=== PATIENT | female | born 1965 | race Caucasian/White ===

== ENCOUNTER 2018-01-06 21:29 | Observation (INO) | payer MEDICAID, SELFPAY ==
[2018-01-06 21:30] VITALS: BP 139/79; PULSE 104; RESP 14; TEMP 36.8; O2SAT 100; BMI 34.2
[2018-01-06] MEDS: Ketorolac 60 MG/2 ML Vial IM (23:04)
[2018-01-06] MEDS: Metoclopramide 10 MG Tablet PO (23:04)
[2018-01-07] MEDS: 0.9% Normal Saline 1,000 ML 999 ML IV (00:05)
[2018-01-07] MEDS: Ondansetron 4 MG/2 ML Vial IV ×2 (00:05→06:18)
[2018-01-07] MEDS: Dihydroergotamine 1 MG/ML Ampul IV (00:05)
--- NOTE | 2018-01-07 00:55 | CT_ITS ---
STUDY: CT BRAIN WITHOUT CONTRAST REASON FOR EXAM: Female, 52 years old. Headache. History of migraine headaches. RADIATION DOSAGE (If Supplied By Facility): CTDIvol = ( 44.99 ) mGy, DLP = ( 745.49 ) mGycm TECHNIQUE: Transaxial CT imaging of the brain was performed without administration of intravenous contrast material. Individualized dose optimization techniques were used for this CT. COMPARISON: None. FINDINGS: Normal soft tissue structures. Minimal smooth exostosis outer cortex left frontal bone which is likely an incidental finding.. Normal size ventricles and extra-axial spaces for the patient's age. Normal white matter tracts of the cerebral hemispheres. Normal basal ganglia and thalami. Normal brainstem. Normal cerebellum. There is no intracranial hemorrhage. There are no findings of an acute ischemic infarction. Normal visualized paranasal sinuses. Mastoid air cells well aerated. CT/Brain/Head without Contrast IMPRESSION: No acute intracranial abnormality. Electronically Signed: Rk Loya MD at 1:46 EDT , Service support ,
[2018-01-07 01:43] LABS: Absolute Lymphocyte Count 2.16 X10^3/ul (0.83-4.51); Absolute Neutrophil Count 3.2 X10^3/uL (2.0-7.7); Basophil# 0.02 X10^3/uL; Basophil% 0.3 % (0-1); Eosinophil# 0.04 X10^3/uL; Eosinophils% 0.7 % (0-5); Hematocrit 39.1 % (37-47); Hemoglobin 12.6 g/dl (12.0-15.0); Lymphocyte # 2.16 X10^3/ul (4.0); Lymphocyte % 37.6 % (19-41); Mean Corp Hgb Conc 32.2 g/gl (32-36); Mean Corpuscular Hgb 28.1 pg (27.0-32.0); Mean Corpuscular Volume 87.3 fL (81-99); Mean Platelet Vol. 8.9 fl (6.2-12.0); Monocyte# 0.32 X10^3/uL; Monocyte% 5.6 % (0-10); Neutrophil # 3.21 X10^3/uL (2.7-7.7); Neutrophil % 55.8 % (47-70); POSITIVE COUNT NO; POSITIVE DIFFERENTIAL NO; POSITIVE MORPHOLOGY NO; Platelet Count 195 K/mm3 (150-450); RBC Distribution Width CV 14.3 % (11.6-14.6); RBC Distribution Width SD 45.1 fl (35.1-43.9); Red Blood Count 4.48 M/mm3 (4.2-5.4); White Blood Count 5.8 K/mm3 (4.4-11.0)
[2018-01-07 01:46] LABS: Prothrombin Time (Protime)PT. 13.2 SECONDS (11.7-14.9)
[2018-01-07 01:52] LABS: Anion Gap 7 (5-15); BUN 15 mg/dL (7-18); BUN/Creat Ratio 15.2 RATIO (10-20); Calcium,Total 8.5 mg/dL (8.5-10.1); Chloride 107 mmol/L (98-107); Creatinine, Serum 0.98 mg/dL (0.55-1.02); EST Glomerular Filtration Rate 63 mL/min (>60); Est Glom Filt Rate - Afr Amer 77 mL/min (>60); Estimated Creatinine Clearance 58.65 ml/min; Glucose 107 mg/dL (74-106); Potassium 3.7 mmol/L (3.5-5.1); Sodium Level 140 mmol/L (136-145)
--- NOTE | 2018-01-07 02:23 | ED.VISSUMM ---
- ER Visit Summary Date of Service: 01/07/18 Chief Complaint: Migraine History of Present Illness: The patient is a 52 F who presents with a headache. She does have a history of migraines. She has a history of prior similar headaches. She states that the current headache began this morning and gradually worsened throughout the day. It is similar in character and location to previous headaches but is more severe. She currently states her pain is 10 out of 10. Her pain begins retro-orbital he and then goes towards the back of the head. She reports nausea but no vomiting. No fevers. No history of head injury or trauma. No visual changes. Physical Examination: Afebrile vitals notable for heart rate 104 otherwise normal Moist mucous membranes Heart regular rhythm slightly tachycardic Lungs are clear Abdomen soft Alert and oriented with no focal or lateralizing neurological deficits, normal strength and sensation, no ataxia Neck is supple without meningismus Test Results: CT of the head shows no acute abnormality. CBC BMP and INR are all normal. Emergency Department Course and Treatment: Initially after 2 attempts we were unable to establish an IV so she was treated with oral Reglan and intramuscular Toradol. She reports no change in symptoms. We again attempted an IV and were successful. The patient was treated with IV fluids DHE and Zofran. She still reports no change in symptoms. At this time I did pursue further evaluation to rule out other pathology including laboratory studies and a CT of the head which were normal. I discussed that my clinical suspicion for subarachnoid hemorrhage is very low given her description of symptoms and also meningitis is very unlikely. We discussed risks and benefits of lumbar puncture. Patient refuses lumbar puncture. At this time she still has intractable migraine. I have ordered a valproic acid and will admit the patient. Treatment Plan: [] Disposition: Admit Impression: Intractable migraine This note was generated with [employer] dictation software. It may contain incorrect words, spelling, and punctuation that were not noted in review of the chart prior to signing ED Disposition - Plan for ED Patient: Chief Complaint: Headache Referrals: [facility] Doctor,Out of [Primary Care Provider] -
--- NOTE | 2018-01-07 02:27 | PCM.HP.STD ---
Problem List (1) Migraine Status: Acute Qualifiers: Migraine type: unspecified Status migrainosus presence: with status migrainosus Intractability: intractable Qualified Code(s): G43.911 - Migraine, unspecified, intractable, with status migrainosus (2) Seizure Status: Chronic Comment: Remotely, x 1, she notes secondary to medication (3) Hypothyroidism Status: Chronic Qualifiers: Hypothyroidism type: unspecified Qualified Code(s): E03.9 - Hypothyroidism, unspecified (4) Obesity (BMI 30.0-34.9) Status: Chronic (5) OAB (overactive bladder) Status: Chronic (6) Bipolar disorder Status: Chronic Qualifiers: Active/Remission status: remission status unspecified Qualified Code(s): F31.9 - Bipolar disorder, unspecified (7) Chronic constipation Status: Chronic (8) Iron deficiency anemia Status: Chronic Qualifiers: Iron deficiency anemia type: unspecified iron deficiency Qualified Code(s): D50.9 - Iron deficiency anemia, unspecified (9) RLS (restless legs syndrome) Status: Chronic (10) Chronic back pain Status: Chronic Qualifiers: Back pain location: back pain in unspecified location Back pain laterality: unspecified Qualified Code(s): M54.9 - Dorsalgia, unspecified; G89.29 - Other chronic pain (11) GERD (gastroesophageal reflux disease) Status: Chronic Qualifiers: Esophagitis presence: esophagitis presence not specified Qualified Code(s): K21.9 - Gastro-esophageal reflux disease without esophagitis History of Present Illness Date of Admission: 01/07/18 Chief Complaint: Headache The patient is a 52 y/o F w/ PMHx: Obesity, Hypothyroidism, Remote Hx Seizure ([place] secondary to medication, x 1 only and no recurrence), OAB, Fe Deficiency Anemia, Anxiety and Depression/Bipolar Disorder, Prior Hx GALEN but she notes repeat testing w/ no further CPAP needs, Chronic Back Pain, RLS, Chronic Constipation, Migraines who presents to the [facility] ED on 01/07/18 with history of onset severe migraine headache starting morning prior to ED presentation, gradually worsening throughout the day, similar to prior migraines in location (retro-orbital radiating toward to back of the head) and character (throbbing but does change to sharp stabbing with movements); however, more severe with upon ED presentation 10 out of 10 pain rating with photophobia and phonophobia in addition to nausea without associated emesis. She notes having taken imitrex and antiemetic at home without relief. She admits that she has been taking 3-4 imitrex per week with poorly controlled migraines. She notes having been attempting to get into see a Neurologist but notes difficulty findings a physician who takes her insurance. In the ED work-up included 98.3, heart rate 104, BP 139/79, unremarkable CBC, unremarkable coags, unremarkable BMP glucose 107, CT brain with no acute intracranial abnormality. In the ED patient administered normal saline, Zofran, Reglan, Toradol, DHE, valproic acid 500 mg IV ?1 without marked improvement. Past Medical History Past Medical History (Chronic Problems): Chronic Problems Seizure (Chronic) Remotely, x 1, she notes secondary to medication Hypothyroidism (Chronic) Obesity (BMI 30.0-34.9) (Chronic) OAB (overactive bladder) (Chronic) Bipolar disorder (Chronic) Chronic constipation (Chronic) Iron deficiency anemia (Chronic) RLS (restless legs syndrome) (Chronic) Chronic back pain (Chronic) GERD (gastroesophageal reflux disease) (Chronic) Allergies morphine Allergy (Verified 01/06/18 21:35) Itching acetaminophen [From Vicodin] Adverse Reaction (Verified 01/06/18 21:35) Other hydrocodone [From Vicodin] Adverse Reaction (Verified 01/06/18 21:35) Other sulfamethoxazole [From Bactrim] Adverse Reaction (Verified 01/06/18 21:35) Nausea/Vom/Diarrhea trimethoprim [From Bactrim] Adverse Reaction (Verified 01/06/18 21:35) Nausea/Vom/Diarrhea Surgical History: - - Lithotripsy, cholecystectomy, tonsillectomy, sinus surgery, wrist surgery Psychiatric History: No pertinent psych hx MANAGER DAIRY History: No pertinent MANAGER DAIRY history Lives: With Family - Her son who is 18 years old lives with her in [place]. She does have a boyfriend who lives in [place]. Smoking Status: Former smoker - Cigarette tobacco usage approximately 18 years prior. Tobacco Use: Non-smoker Drugs: None - *Family History Maternal History Items: - - Patient notes maternal family history of migraines, depression and anxiety, breast cancer. Paternal History Items: No pertinent history Sibling History Items: - - Patient notes a sister with depression and anxiety as well as migraines. Review of Systems Constitutional: Reports: Anorexia, Malaise, Weakness, Fatigue. Denies: Chills, Fever, Weight Change HEENT: Reports: Head Aches. Denies: Sinus Congestion, Sinus Drainage Cardiovascular: Denies: Chest Pain, Palpitations Respiratory: Denies: Cough, Shortness of breath at rest, Sputum production Gastrointestinal: Reports: Nausea. Denies: Abdominal Pain, Vomiting Genitourinary: Denies: Dysuria Musculoskeletal: Reports: Back Pain. Denies: Joint Pain, Joint Tenderness Skin: Denies: Rash, Wounds Neurological: Denies: Numbness, Tingling, Focal weakness Psychiatric: Reports: Anxiety, Depression. Denies: Homicidal Ideations, Suicidal Ideations Hematologic/ Lymphatic: Reports: Anemia. Denies: Easy Bruising, Easy Bleeding VTE Information - Inpt Only VTE Present on Admission: No VTE Mechan Device Prophylaxis: SCD's VTE Pharm Prophylaxis ordered?: No Patient Problems: Active and Suspected Problems Migraine (Acute) Subjective: Seated upright in the ED bed, fatigued appearance, notes sound sensitivity improved, still having light sensitivity. Objective: Physical Examination: General: awake, alert, oriented x 3 and cooperative, seated upright in the ED bed, notes lessened sound sensitivity, still light sensitivity. Skin: normal color, turgor, no icterus, cyanosis. HEENT: AT/NC, EOMI, PERRLA, dry MM, no carotid bruits or JVD noted. Lungs: CTA bilaterally, moderate effort, mild decrease BL bases, no rales, ronchi or wheezing. Heart: Regular rate and rhythm; no gallop, rub audible. Abdomen: soft, obese, NTTP, ND, normal BS, no HSM. Extremities: no cyanosis, clubbing, or edema. Neurological: patient awake, alert, oriented x 3; cognitive function intact; pupils equally reactive to light and accomodation; cranial nerves II-XII grossly normal, moving all 4 extremities, no focal deficits, strength severely globally decreased secondary to acute presentation. Psychiatric: affect appears fatigued, no acute evidence of depressive or anxiety feelings. - Physical Exam Vital Signs Temp Pulse Resp BP Pulse Ox 98.3 F 104 H 14 139/79 H 100 01/06/18 21:30 01/06/18 21:30 01/06/18 21:30 01/06/18 21:30 01/06/18 21:30 Oxygen Delivery Method Room Air Weight: 199 lb 1.239 oz Body Mass Index (BMI) 34.2 Laboratory Tests Past 24 Hrs 01/07/18 01/07/18 01/07/18 01:35 01:35 01:35 WBC 5.8 RBC 4.48 Hgb 12.6 Hct 39.1 MCV 87.3 MCH 28.1 MCHC 32.2 RDW 14.3 RDW Differential 45.1 H Plt Count 195 MPV 8.9 Immature Gran % (Auto) 0.000 Neut % (Auto) 55.8 Lymph % (Auto) 37.6 [place] % (Auto) 5.6 Eos % (Auto) 0.7 Baso % (Auto) 0.3 Absolute Neuts (auto) 3.2 Absolute Lymphs (auto) 2.16 Total Counted Not Reportable PT 13.2 INR 1.0 Sodium 140 Potassium 3.7 Chloride 107 Carbon Dioxide 26.0 Anion Gap 7 BUN 15 Creatinine 0.98 Estim Creat Clear Calc 58.65 Est GFR (MDRD) Af Amer 77 Est GFR (MDRD) Non-Af 63 BUN/Creatinine Ratio 15.2 Glucose 107 H Calcium 8.5 Assessment/Plan All Active Problems Migraine (Acute) The patient is a 52 y/o F w/ PMHx: Obesity, Hypothyroidism, Remote Hx Seizure, OAB, Fe Deficiency Anemia, Anxiety and Depression/Bipolar Disorder, Prior Hx GALEN but she notes repeat testing w/ no further CPAP needs, Chronic Back Pain, RLS, Chronic Constipation, Migraines who presents to the [facility] ED on 01/07/18 with history of onset severe migraine headache starting morning prior to ED presentation, gradually worsening throughout the day, similar to prior migraines in location (retro-orbital radiating toward to back of the head) and character; however, more severe with upon ED presentation 10 out of 10 pain rating with photophobia and phonophobia in addition to nausea without associated emesis. (1) Acute Persistent Intractable Migraine: Will admit to MS, hold narcotic therapy give this may exacerbate migraine, initiate IV VPA 500mg Q6 hours, IV Decadron 4mg Q6 hours, IV Toradol 30mg Q6 hours x 5 and increase her home PO Neurontin 200mg TID with meals. If patient KENNY does not improve will proceed with MRI of brain with MRA of head. Will consult Neurology. (2) Hypothyroidism: Continue home synthroid regimen. (3) Obesity: Weight loss and lifestyle changes encouraged. (4) Hx Seizure: Noted remote history of seizure, not on AED, never recurred, suspected secondary to medication per patient report. (5) Fe Deficiency Anemia: Noted history, prior history of menorrhagia, admission hemoglobin appropriate, continue Fe supplementation. (6) Anxiety and Depression/Bipolar Disorder: Continue home psychiatric regimen. (7) Chronic Constipation: Continue home bowel regimen. (8) DVT Prophylaxis: SCDs, lovenox. Code Visit Inpatient E&M: 10395 Init Hosp L3
[2018-01-07 03:34] VITALS: BP 117/68; PULSE 68; RESP 18; TEMP 36.4; O2SAT 100; BMI 34.0; BMI 34.2
[2018-01-07] MEDS: Dicyclomine 10 MG Capsule PO ×4 (06:17→21:16)
[2018-01-07] MEDS: Gabapentin 100 MG Capsule 200 MG PO ×3 (06:17→17:15)
[2018-01-07] MEDS: busPIRone 15 MG TABLET PO ×3 (06:17→21:16)
[2018-01-07] MEDS: Levothyroxine 100 MCG Tablet PO (06:18)
[2018-01-07] MEDS: Ketorolac 30 MG/ML Syringe IV ×4 (06:18→23:39)
--- NOTE | 2018-01-07 09:47 | PN_ITS ---
Progress Note Patient is a 52-year-old lady admitted with acute migrainous attack. Patient has been omitted to a regular nursing floor for symptomatic management Patient has been seen and examined. Her initial assessment including history and physical, diagnostic data integration developer orders reviewed will follow.
[2018-01-07 09:48] VITALS: BP 121/70; PULSE 86; RESP 18; TEMP 36.4; O2SAT 97
[2018-01-07] MEDS: Enoxaparin 40 MG/0.4 ML Syringe SC (09:50)
[2018-01-07] MEDS: Famotidine 20 MG Tablet PO ×2 (09:50→21:17)
[2018-01-07] MEDS: Docusate Sodium 100 MG Capsule PO ×2 (09:51→21:16)
[2018-01-07] MEDS: Senna Tablet 1 TABLET PO ×2 (09:51→21:18)
[2018-01-07] MEDS: Aspirin 81 MG TAB.CHEW PO (09:51)
--- NOTE | 2018-01-07 09:55 | PCM.CONS.GEN ---
Problem List (1) Status migrainosus Status: Acute Reason for Consult Date of Consultation: 01/07/18 Reason for Consultation: Headache History of Present Illness: The patient is a 52 year old CF with PMH Migraine, H/O seizure, RLS, H/O chronic back pain, RA, Bipolar d/o admitted with KENNY. Per patient she started having KENNY since 10 AM yesterday (01/06/18), was severe, generalized, 10/10 intensity, with photosensitivity, phonophobia, vomiting, visual floaters, was started on Depacon and Decadron with Toradol since admission and that has helped with her KENNY, at present is 8/10 in intensity per patient. She denies any focal motor weakness, speech disturbances, sensory loss or visual disturbances. Per patient she has been having migraine HAs in the past, but she did not have any KENNY for many years in between, but has been having migraine HAs for the past [address] head on admission reported nothing acute. [] Past Medical History Past Medical History (Chronic Problems): Chronic Problems Seizure (Chronic) Remotely, x 1, she notes secondary to medication Hypothyroidism (Chronic) Obesity (BMI 30.0-34.9) (Chronic) OAB (overactive bladder) (Chronic) Bipolar disorder (Chronic) Chronic constipation (Chronic) Iron deficiency anemia (Chronic) RLS (restless legs syndrome) (Chronic) Chronic back pain (Chronic) GERD (gastroesophageal reflux disease) (Chronic) Allergies morphine Allergy (Verified 01/06/18 21:35) Itching acetaminophen [From Vicodin] Adverse Reaction (Verified 01/06/18 21:35) Other hydrocodone [From Vicodin] Adverse Reaction (Verified 01/06/18 21:35) Other sulfamethoxazole [From Bactrim] Adverse Reaction (Verified 01/06/18 21:35) Nausea/Vom/Diarrhea trimethoprim [From Bactrim] Adverse Reaction (Verified 01/06/18 21:35) Nausea/Vom/Diarrhea Home Medications: Ambulatory Orders Medication Instructions Recorded Amitriptyline HCl 50 mg PO QHS 01/07/18 Aspirin [Aspirin, Baby] 81 mg PO DAILY@0800 01/07/18 Dicyclomine HCl [Bentyl] 10 mg PO ACHS 01/07/18 Docusate Sodium [Colace] 100 mg PO BID 01/07/18 Epinephrine [Epi Pen] 0.3 mg 01/07/18 Fluticasone 110 Mcg [Flovent (SP)] 1 puff INHALATION DAILY 01/07/18 Gabapentin [Neurontin] 100 mg PO TID 01/07/18 Hyoscyamine Sulfate 0.125 mg SL Q4H PRN PRN 01/07/18 Ibuprofen [Motrin] 600 mg PO Q8H PRN PRN 01/07/18 Levothyroxine [Synthroid] 100 mg PO DAILY 01/07/18 Loratadine 10 mg PO MDD allergy 01/07/18 Lorazepam [Ativan] 0.5 mg PO PRN PRN 01/07/18 Pantoprazole Sodium [Protonix] 20 mg PO BID 01/07/18 Ranitidine [Zantac] 150 mg PO BID 01/07/18 Sennosides [Senna Laxative] 8.6 mg PO BID 01/07/18 busPIRone [Buspar] 15 mg PO TID 01/07/18 traZODone [Desyrel] 100 mg PO QHS 01/07/18 Surgical History: - - Lithotripsy, cholecystectomy, tonsillectomy, sinus surgery, wrist surgery Psychiatric History: No pertinent psych hx 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 She does have a boyfriend who lives in [place]. Smoking Status: Former smoker Tobacco Use: Cigarettes Drugs: None - *Family History Maternal History Items: - - Patient notes maternal family history of migraines, depression and anxiety, breast cancer. Paternal History Items: No pertinent history Sibling History Items: - - Patient notes a sister with depression and anxiety as well as migraines. Review of Systems Constitutional: Reports: - - complete ROS negative except as documented in HPI Patient Problems: Active and Suspected Problems Migraine (Acute) Status migrainosus (Acute) - Physical Exam General: Alert HEENT: Normocephalic Neck: Supple Lungs: Normal air movement Cardiovascular: Normal S1, Normal S2 Abdomen: Bowel Sounds Present Extremities: No cyanosis Neurological: - - consious, alert, AoAx3, CN 2-12 grossly intact, power 5/5 all 4 extremities, no sensory loss, no cerebellar signs, gait deferred, Reflexes + B/L B/S/T/K/A, fundus not visualized Psych/Mental Status: Normal Affect Vital Signs Temp Pulse Resp BP Pulse Ox 97.6 F L 86 18 121/70 H 97 01/07/18 09:48 01/07/18 09:48 01/07/18 09:48 01/07/18 09:48 01/07/18 09:48 Oxygen Delivery Method Room Air Weight: 89.811 kg Body Mass Index (BMI) 34.0 Intake and Output for Last 24 Hours 01/05/18 01/06/18 01/07/18 23:59 23:59 23:59 Intake Total Balance Laboratory Tests Past 24 Hrs 01/07/18 01/07/18 01/07/18 01:35 01:35 01:35 WBC 5.8 RBC 4.48 Hgb 12.6 Hct 39.1 MCV 87.3 MCH 28.1 MCHC 32.2 RDW 14.3 RDW Differential 45.1 H Plt Count 195 MPV 8.9 Immature Gran % (Auto) 0.000 Neut % (Auto) 55.8 Lymph % (Auto) 37.6 [place] % (Auto) 5.6 Eos % (Auto) 0.7 Baso % (Auto) 0.3 Absolute Neuts (auto) 3.2 Absolute Lymphs (auto) 2.16 Total Counted Not Reportable PT 13.2 INR 1.0 Sodium 140 Potassium 3.7 Chloride 107 Carbon Dioxide 26.0 Anion Gap 7 BUN 15 Creatinine 0.98 Estim Creat Clear Calc 58.65 Est GFR (MDRD) Af Amer 77 Est GFR (MDRD) Non-Af 63 BUN/Creatinine Ratio 15.2 Glucose 107 H Calcium 8.5 Assessment/Plan All Active Problems Migraine (Acute) Status migrainosus (Acute) The patient is a 52 year old CF with PMH Migraine, H/O seizure, RLS, H/O chronic back pain, RA, Bipolar d/o admitted with KENNY. Per patient she started having KENNY since 10 AM yesterday (01/06/18), was severe, generalized, 10/10 intensity, with photosensitivity, phonophobia, vomiting, visual floaters, was started on Depacon and Decadron with Toradol since admission and that has helped with her KENNY, at present is 8/10 in intensity per patient. She denies any focal motor weakness, speech disturbances, sensory loss or visual disturbances. Per patient she has been having migraine HAs in the past, but she did not have any KENNY for many years in between, but has been having migraine HAs for the past [address] head on admission reported nothing acute. On Amitriptyline for psych issues. Impression Status Migrainosus Plan -Increase Amitriptyline to 100 mg PO q hs. -Depacon 500 mg IV Q 8 hrly for 24-48 hrs -Decadron 4 mg IV Q 6 hrly for 24-48 hrs -Magnesium sulphate 1 g iv once -Toradol 30 mg IV q 6 hrly PRN KENNY for 24 hrs -Check MRI brain w/o contrast -Check ESR -Labs reviewed -GI/DVT prophylaxis -Fall precautions -Further medical management per primary team -Please call with questions if any -Thank you for allowing us to participate in patient's care and management I spent 60 minutest taking history, doing physical examination, reviewing medical records, coordinating care and counseling the patient. Code Visit Inpatient E&M: 17095 Init Hosp L3
--- NOTE | 2018-01-07 09:56 | MRI_ITS ---
STUDY: MRI BRAIN WITHOUT CONTRAST REASON FOR EXAM: Female, 52 years old. Headache, migraines. TECHNIQUE: Standardized multiplanar fat and water weighted pulse sequences were obtained. COMPARISON: CT head 01/07/2018. FINDINGS: Normal size of the ventricles and extra-axial spaces for the patient's age. Normal white matter tracts of the supratentorial brain. Normal bilateral basal ganglia. Normal thalami. There is no extra-axial fluid accumulation. Normal flow voids within the major intracranial circulation suggesting patency by spin echo criteria. Normal sella turcica, pituitary gland, infundibular stalk, optic chiasm and hypothalamus. Normal tectal plate and pineal gland. Normal midbrain, kobe and medulla. Normal cerebellum. Normal basal cisterns. Normal bilateral temporal bones. Normal bilateral internal auditory canals. No demonstrated orbital abnormality, within the constraints of a routine brain study. Normal visualized paranasal sinuses. Normal calvarium and skull base. Normal visualized soft tissue structures. Normal visualized upper cervical spine. MRI/Brain without Contrast IMPRESSION: Normal unenhanced MRI of the brain. Electronically Signed: Aleida Mckoy MD at 16:12 EDT Tel , Service support ,
[2018-01-07 11:36] LABS: Erythrocyte Sedimentation Rate 20 mm/hr (0-30)
[2018-01-07] MEDS: Magnesium Sulfate 1 GM in 0.9% Normal Saline 100 ML IV (12:37)
[2018-01-07 13:26] VITALS: O2SAT 97
--- NOTE | 2018-01-07 15:09 | CASEMGMT ---
RN CM Note. anticipate home on dc. Intro role of CM to patient in room. Pt denies needs on dc. Lives with her 18yo son. Pt drives, no DME and states her boyfriend can assist on dc if needed. Pharmacy: [facility]- entered in profile [facility]
[2018-01-07 16:42] VITALS: BP 120/72; PULSE 82; RESP 18; TEMP 36.7; O2SAT 98
[2018-01-07] MEDS: Ketorolac 30 MG/ML Syringe 50 MG IV (18:24)
[2018-01-07] MEDS: proMETHazine 25 MG/ML Syringe IV (18:29)
[2018-01-07] MEDS: traZODone 100 MG Tablet PO (21:18)
[2018-01-07] MEDS: Amitriptyline 100 MG Tablet PO (21:18)
[2018-01-07 21:32] VITALS: BP 104/53; PULSE 87; RESP 16; TEMP 36.9; O2SAT 98
[2018-01-07] MEDS: 0.9% NaCl Peripheral Flush Adult/Peds IV (23:39)
[2018-01-08 02:49] VITALS: BP 112/66; PULSE 86; RESP 16; TEMP 36.6; O2SAT 98
[2018-01-08] MEDS: Ketorolac 30 MG/ML Syringe IV (05:55)
[2018-01-08] MEDS: Dicyclomine 10 MG Capsule PO (06:36)
[2018-01-08] MEDS: busPIRone 15 MG TABLET PO (06:36)
[2018-01-08] MEDS: Levothyroxine 100 MCG Tablet PO (06:36)
[2018-01-08] MEDS: Gabapentin 100 MG Capsule 200 MG PO (07:35)
[2018-01-08] MEDS: Aspirin 81 MG TAB.CHEW PO (07:36)
[2018-01-08 07:40] VITALS: O2SAT 98
--- NOTE | 2018-01-08 08:04 | PCM.DC ---
- Discharge Diagnoses Current Active Problems: Current Active and Chronic Problems Seizure (Chronic) Remotely, x 1, she notes secondary to medication Hypothyroidism (Chronic) Obesity (BMI 30.0-34.9) (Chronic) Migraine (Acute) OAB (overactive bladder) (Chronic) Bipolar disorder (Chronic) Chronic constipation (Chronic) Iron deficiency anemia (Chronic) RLS (restless legs syndrome) (Chronic) Chronic back pain (Chronic) GERD (gastroesophageal reflux disease) (Chronic) Status migrainosus (Acute) You will use the following diet at home:: No restrictions Allergies/Adverse Reactions: Allergies morphine Allergy (Verified 01/06/18 21:35) Itching acetaminophen [From Vicodin] Adverse Reaction (Verified 01/06/18 21:35) Other hydrocodone [From Vicodin] Adverse Reaction (Verified 01/06/18 21:35) Other sulfamethoxazole [From Bactrim] Adverse Reaction (Verified 01/06/18 21:35) Nausea/Vom/Diarrhea trimethoprim [From Bactrim] Adverse Reaction (Verified 01/06/18 21:35) Nausea/Vom/Diarrhea Medications to take at Discharge Aspirin [Aspirin, Baby] 81 mg PO DAILY@0800 01/07/18 Dicyclomine HCl [Bentyl] 10 mg PO ACHS 01/07/18 Docusate Sodium [Colace] 100 mg PO BID 01/07/18 Epinephrine [Epi Pen] 0.3 mg 01/07/18 Fluticasone 110 Mcg [Flovent 110 Mcg] 1 puff INHALATION DAILY 01/07/18 Hyoscyamine Sulfate 0.125 mg SL Q4H PRN PRN 01/07/18 Ibuprofen [Motrin] 600 mg PO Q8H PRN PRN 01/07/18 Levothyroxine [Synthroid] 100 mg PO DAILY 01/07/18 Loratadine 10 mg PO MDD allergy 01/07/18 Lorazepam [Ativan] 0.5 mg PO PRN PRN 01/07/18 Pantoprazole Sodium [Protonix] 20 mg PO BID 01/07/18 Ranitidine [Zantac] 150 mg PO BID 01/07/18 Sennosides [Senna Laxative] 8.6 mg PO BID 01/07/18 busPIRone [Buspar] 15 mg PO TID 01/07/18 traZODone [Desyrel] 100 mg PO QHS 01/07/18 Amitriptyline HCl [Elavil] 100 mg PO QHS #30 tablet 01/08/18 Gabapentin [Neurontin] 200 mg PO TIDCM #90 capsule 01/08/18 The following prescriptions were given: Amitriptyline HCl [Elavil] 100 mg PO QHS #30 tablet Gabapentin [Neurontin] 200 mg PO TIDCM #90 capsule Primary Care Physician: [facility] Doctor,Out of [Primary Care Provider] - Please follow up with your Primary Care Physician in: in 5-7 days Test Results: Test results from this visit will be discussed in further detail at your follow-up appointment, if applicable. Please Follow Up With: Josiane Grajeda MD When: in 1-2 weeks Proposed Discharge Date: 01/08/18
--- NOTE | 2018-01-08 08:06 | PCM.DC.SUM ---
Discharge Date and Diagnosis - Problem List Patient Problems: Active and Suspected Problems Migraine (Acute) Status migrainosus (Acute) Date of Admission: 01/07/18 Date of Discharge: 01/08/18 - Primary Discharge Diagnosis Active and Suspected Problems Migraine (Acute) Status migrainosus (Acute) - Secondary Discharge Diagnosis Chronic Problems Seizure (Chronic) Remotely, x 1, she notes secondary to medication Hypothyroidism (Chronic) Obesity (BMI 30.0-34.9) (Chronic) OAB (overactive bladder) (Chronic) Bipolar disorder (Chronic) Chronic constipation (Chronic) Iron deficiency anemia (Chronic) RLS (restless legs syndrome) (Chronic) Chronic back pain (Chronic) GERD (gastroesophageal reflux disease) (Chronic) Hospital Course and Treatment Imaging Results: Clinical Impression(s) from Imaging Studies Brain CT 01/07/18 00:55 IMPRESSION: No acute intracranial abnormality. Electronically Signed: Rk Loya MD at 1:46 EDT , Service support , Brain MRI 01/07/18 09:56 IMPRESSION: Normal unenhanced MRI of the brain. Electronically Signed: Aleida Mckoy MD at 16:12 EDT Tel , Service support , Summary of Care Provided: Patient is a 52-year-old lady admitted with acute migrainous attack. Patient has been omitted to a regular nursing floor for symptomatic management patient was managed with a cocktail consisting of-Amitriptyline ; Depacon 500 mg IV Q 8 ;Decadron 4 mg IV Q 6;Magnesium sulphate 1 g iv once as well as Toradol 30 mg IV q 6 hrly PRN KENNY patient condition did improve was discharged home with increasing dose of gabapentin as well as amitriptyline with an outpatient follow-up with neurology set up Physical examination at the time of discharge GENERAL: cooperative HEENT: Atraumatic moist oral mucosa EYES; Anicteric, Normal Conjuctiva NECK; supple, normal thyroid, no distended JVD. RESPIRATORY: Clear to auscultation bilaterally, CARDIOVASCULAR: Regular S1 S2, no audible murmurs GI: soft, non-tender, normoactive bowel sounds, NEURO: Awake; no lateralizing signs. SKIN: No Rash PSYCH; Normal affect Time Spent on discharge; 35 minutes Discharge Diet: No Restrictions Home Medications: Medications to take at Discharge Aspirin [Aspirin, Baby] 81 mg PO DAILY@0800 01/07/18 Dicyclomine HCl [Bentyl] 10 mg PO ACHS 01/07/18 Docusate Sodium [Colace] 100 mg PO BID 01/07/18 Epinephrine [Epi Pen] 0.3 mg 01/07/18 Fluticasone 110 Mcg [Flovent 110 Mcg] 1 puff INHALATION DAILY 01/07/18 Hyoscyamine Sulfate 0.125 mg SL Q4H PRN PRN 01/07/18 Ibuprofen [Motrin] 600 mg PO Q8H PRN PRN 01/07/18 Levothyroxine [Synthroid] 100 mg PO DAILY 01/07/18 Loratadine 10 mg PO MDD allergy 01/07/18 Lorazepam [Ativan] 0.5 mg PO PRN PRN 01/07/18 Pantoprazole Sodium [Protonix] 20 mg PO BID 01/07/18 Ranitidine [Zantac] 150 mg PO BID 01/07/18 Sennosides [Senna Laxative] 8.6 mg PO BID 01/07/18 busPIRone [Buspar] 15 mg PO TID 01/07/18 traZODone [Desyrel] 100 mg PO QHS 01/07/18 Amitriptyline HCl [Elavil] 100 mg PO QHS #30 tablet 01/08/18 Gabapentin [Neurontin] 200 mg PO TIDCM #90 capsule 01/08/18 Following Prescrptions Were Given to Patient: Amitriptyline HCl [Elavil] 100 mg PO QHS #30 tablet Gabapentin [Neurontin] 200 mg PO TIDCM #90 capsule Primary Care Physician: [facility] [address] Doctor,Out of [Primary Care Provider] - Please follow up with your Primary Care Physician in: in 5-7 days Please Follow Up With: Josiane Grajeda MD When: in 1-2 weeks Disposition: Home Minutes spent on discharge:: 35 Patient Condition:: Stable Medical Necessity - Tobacco Use Smoking Status: Former smoker Tobacco Use: Cigarettes Meaningful Use Info Meaningful Use Diagnoses (Choose all that apply): None applicable Code Visit OBSV E&M: 79319 Observation care discharge
[2018-01-08 08:45] VITALS: BP 118/66; PULSE 79; RESP 16; TEMP 36.5; O2SAT 96
[2018-01-08] MEDS: Docusate Sodium 100 MG Capsule PO (10:18)
[2018-01-08] MEDS: Enoxaparin 40 MG/0.4 ML Syringe SC (10:19)
[2018-01-08] MEDS: Senna Tablet 1 TABLET PO (10:19)
[2018-01-08] MEDS: Famotidine 20 MG Tablet PO (10:19)
[2018-01-08 11:00] VITALS: BP 110/60; PULSE 74; RESP 18; TEMP 37; O2SAT 98
--- NOTE | 2018-01-08 11:21 | CASEMGMT ---
Pt needs an appointment w/neurology as per physician. SW called [facility], they do not take pt's insurance. SW spoke w/pt, she is agreeable to SW make an appointment w/Dr. Babak Erwin at [facility]. SW called, made appt for January 15 at 3pm. SW gave the pt the information for the appointment. Pt asked SW about getting her medical information from this hospitalization to Dr. Erwin. SW had pt sign a release, faxed it to HIM, and asked them to mail pt's records to Dr. Erwin's office. No further needs are anticipated. CRISTINA Oliveros, COLORIST
== END 2018-01-08 10:40 | disposition home or self-care (01) | DRG 25 ==
LOC: ED 22:49 → MS2 01-07 03:00
PROVIDERS: Psychiatry & Neurology Neurology; Admitting Provider Family Medicine; Emergency Provider Emergency Medicine; Visit Provider Internal Medicine
DX: G43.911 Migraine, unspecified, intractable, with status migrainosus (principal); E03.9 Hypothyroidism, unspecified; E66.9 Obesity, unspecified; Z68.34 Body mass index [BMI] 34.0-34.9, adult; K59.09 Other constipation; N32.81 Overactive bladder; K21.9 Gastro-esophageal reflux disease without esophagitis; G89.29 Other chronic pain; M54.9 Dorsalgia, unspecified; F31.9 Bipolar disorder, unspecified; G25.81 Restless legs syndrome; Z79.899 Other long term (current) drug therapy; Z79.82 Long term (current) use of aspirin; Z87.891 Personal history of nicotine dependence; D50.9 Iron deficiency anemia, unspecified
CPT/HCPCS: 36415; 70450; 70551; 80048; 85025; 85610; 85652; 96365; 96366; 96372; 96375; 96376; 99218; 99282; J7030; A4216; G0378; J1110; J2405

== ENCOUNTER 2018-06-06 17:12 | Emergency (ER) | payer BC, MEDICAID, SELFPAY ==
[2018-06-06 17:14] VITALS: BP 135/81; PULSE 70; RESP 16; TEMP 36.4; O2SAT 100; BMI 37.2
--- NOTE | 2018-06-06 17:29 | ED.VISSUMM ---
- ER Visit Summary Date of Service: 06/06/18 Chief Complaint: Headache History of Present Illness: The patient is a 52 F with history of migraines presents with her usual migraine. Headache was gradual in onset started earlier this morning with a maximum intensity a few hours later. She has photophobia but no vision changes no neck stiffness. She has no neurological deficit. She has no fever chills nausea or vomiting. Physical Examination: Patient appears in some distress Moist mucous membranes, no obvious facial deformity No C-spine tenderness supple neck. Regular rate and rhythm without any obvious murmurs Clear lungs bilaterally speaking in full sentences without any obvious respiratory distress Abdomen soft and nontender no guarding or rebound Moves all extremities without any difficulty or pain. Skin does not show any obvious rashes or lesions, no trauma. Alert oriented ?3 with no gross focal deficit Emergency Department Course and Treatment: Patient received IV fluids Benadryl Compazine and Toradol. No imaging is needed in the emergency department this is chronic recurrent with a gradual onset and no neurological symptoms. Will discharge in stable condition Impression: Migraine headache This note was generated with [employer] dictation software. It may contain incorrect words, spelling, and punctuation that were not noted in review of the chart prior to signing ED Disposition - Plan for ED Patient: Disposition: Home or Assisted Living Diagnosis: Migraine Instructions: ED Headache Migraine Prescriptions: Sumatriptan Succinate [Imitrex] 4 mg SQ .X1 PRN #2 ml Referrals: [facility] Doctor,Out of [Primary Care Provider] - 3-5 Days
--- NOTE | 2018-06-06 17:32 | ED.DCSUM_ITS ---
- ER Visit Summary Date of Service: 06/06/18 Chief Complaint: Headache History of Present Illness: The patient is a 52 F with history of migraines presents with her usual migraine. Headache was gradual in onset started earlier this morning with a maximum intensity a few hours later. She has photophobia bu t no vision changes no neck stiffness. She has no neurological deficit. She has no fever chills nausea or vomiting. Physical Examination: Patient appears in some distress Moist mucous membranes, no obvious facial deformity No C-spine tenderness supple neck. Regular rate and rhythm without any obvious murmurs Clear lungs bilaterally speaking in full sentences without any obvious respiratory distress Abdomen soft and nontender no guarding or rebound Moves all extremities without any difficulty or pain. Skin does not show any obvious rashes or lesions, no trauma. Alert oriented ?3 with no gross focal deficit Emergency Department Course and Treatment: Patient received IV fluids Benadryl Compazine and Toradol. No imaging is needed in the emergency department this is chronic recurrent with a gradual onset and no neurological symptoms. Will discharge in stable condition Impression: Migraine headache This note was generated with [employer] dictation software. It may contain incorrect words, spelling, and punctuation that were not noted in review of the chart prior to signing ED Disposition - Plan for ED Patient: Disposition: Home or Assisted Living Diagnosis: Migraine Instructions: ED Headache Migraine Prescriptions: Sumatriptan Succinate [Imitrex] 4 mg SQ .X1 PRN #2 ml Referrals: [facility] Doctor,Out of [Primary Care Provider] - 3-5 Days
[2018-06-06] MEDS: 0.9% Normal Saline 1,000 ML 999 ML IV (17:44)
[2018-06-06] MEDS: Ketorolac 30 MG/ML Syringe IV (17:45)
[2018-06-06] MEDS: DiphenhydrAMINE 50 MG/ML Syringe 25 MG IV (17:46)
[2018-06-06] MEDS: proCHLORPERazine 10 MG/2 ML Vial IV (17:46)
== END 2018-06-06 18:45 | disposition home or self-care (01) ==
LOC: ED 17:42
PROVIDERS: Emergency Provider Emergency Medicine
DX: G43.909 Migraine, unspecified, not intractable, without status migrainosus (principal); K21.9 Gastro-esophageal reflux disease without esophagitis; Z79.82 Long term (current) use of aspirin; Z79.899 Other long term (current) drug therapy
CPT/HCPCS: 96361; 96374; 96375; 99281; J7030; A4216

== ENCOUNTER 2018-07-04 20:44 | Observation (INO) | payer BC, SELFPAY ==
[2018-07-04 20:44] VITALS: BP 137/87; PULSE 92; RESP 16; TEMP 36.4; O2SAT 98; BMI 38.1
[2018-07-04 20:49] VITALS: RESP 18
--- NOTE | 2018-07-04 20:57 | ED.DCSUM_ITS ---
History of Present Illness Chief Complaint: Headache Detail of Chief Complaint: Global unrelenting Informant: Patient, Significant Other Onset: Yesterday Context: Sudden Onset Timing: Continuous Quality: Global discomfort Location: Head Current Severity: Moderate Maximum Severity: Severe Worsened by: Light Relieved by: Nausea without vomiting Associated Symptoms: Patient believes she has sinus infection, symptoms started yesterday Narrative: Who underwent sinus surgery 2 weeks ago. She presents with global headache with photophobia and nausea. She took Imitrex without benefit. She also has Botox treatment. She states this headache is worse than normal and persistent. She complains of subjective fever and diaphoresis. She denied double vision, blurred vision, loss of vision or change in vision. She does report nasal congestion for the past 24 hours. She denies sore throat or ear pain. She denies cough or shortness of breath. Denies chest pain. She denies dysuria, frequency, urgency or hematuria. She denies paresthesia, anesthesia or motor weakness. She states she has problems with balance. Prior similar symptoms: Yes - Migraine headaches Recent Illness/Hospitalization: Yes - Recent sinus surgery - Past Medical History (1) Migraine Status: Acute (2) Status migrainosus Status: Acute (3) Bipolar disorder Status: Chronic (4) Chronic back pain Status: Chronic (5) GERD (gastroesophageal reflux disease) Status: Chronic (6) Hypothyroidism Status: Chronic (7) Iron deficiency anemia Status: Chronic (8) Obesity (BMI 30.0-34.9) Status: Chronic (9) RLS (restless legs syndrome) Status: Chronic (10) Seizure Status: Chronic Comment: Remotely, x 1, she notes secondary to medication Past Medical History - Allergies and Home Meds Allergies/Adverse Reactions: Allergies morphine Allergy (Verified 07/04/18 22:20) Itching acetaminophen [From Vicodin] Adverse Reaction (Verified 07/04/18 22:20) Other hydrocodone [From Vicodin] Adverse Reaction (Verified 07/04/18 22:20) Other sulfamethoxazole [From Bactrim] Adverse Reaction (Verified 07/04/18 22:20) Nausea/Vom/Diarrhea trimethoprim [From Bactrim] Adverse Reaction (Verified 07/04/18 22:20) Nausea/Vom/Diarrhea Primary Care Physician: [facility] Doctor,Out of [Primary Care Provider] - 1-2 Days if not improving Prior records reviewed: Yes Surgical History: noncontributory, - - Lithotripsy, cholecystectomy, tonsillectomy, sinus surgery, wrist surgery Lives: Spouse/ Significant Other Smoking Status: Never smoker Alcohol: None - Family History Maternal Family History: Reports: - - Patient notes maternal family history of migraines, depression and anxiety, breast cancer. Paternal Family History: Reports: No pertinent history Sibling Family History: Reports: - - Patient notes a sister with depression and anxiety as well as migraines. Review of Systems General: Reports: Fever, Subjective, Sweats. Denies: Chills, Malaise, Weight loss Eyes: Denies: Visual changes - bilaterally, Blurred Vision - bilaterally, Diplopia ENT: Reports: Rhinorrhea. Denies: Bilateral ear pain, Sore throat Cardiovascular: Denies: Chest pain, Palpitations Respiratory: Denies: Dyspnea, Cough, Dyspnea on exertion Gastrointestinal: Denies: Abdominal pain, Nausea, Vomiting, Diarrhea, Melena, Hematochezia Genitourinary: Denies: Dysuria, Hematuria, Frequency Musculoskeletal: Reports: Neck pain. Denies: Myalgias, Arthralgias, Back pain, Extremity Pain Skin: Denies: Rash, Wounds Neurological: Reports: Headache. Denies: Weakness, Numbness Psych: Reports: Depression Hematologic: Denies: Easy bruising, Easy bleeding Physical Exam Vital Signs/Narrative: Vital Signs Temp Pulse Resp BP Pulse Ox 07/04/18 20:49 18 07/04/18 20:44 97.5 F L 92 16 137/87 H 98 Inital Vital Signs reviewed: Yes General: Well nourished, Well developed, Obese, No Acute Distress, - - Patient squints when background lighting is turned down. Head: Normocephalic, Atraumatic Eyes: Perrl, EOMI, - - There is no papilledema. Cup-to-disc ratio is normal.. Negative for: Pale conjunctiva, Scleral icterus ENT: Moist mucous membranes, TM's clear, Nasal congestion Neck: Supple, Nontender, No lymphadenopathy, No JVD Cardiovascular: Regular rate, Regular rhythm, No murmurs, Normal S1, Normal S2 Respiratory: No distress, CTA bilaterally, Chest nontender Abdomen: Soft, Nontender, Nondistended, Normal bowel sounds Back: Nontender, Normal Inspection Extremities: Nontender, No edema Skin: Normal color, No rash Neurological: Alert, Oriented x3, Cranial nerves II-XII grossly intact, Normal Strength, Normal Sensation, Normal DTR, Normal Gait, - - Color testing finger- nose to finger was performed well. Patient's gait was observed she walked from triage to her examination room and there was no abnormality noted. Psychological: Normal affect, Normal Mood Diagnostic/Tx/Re-eval - Medical Decision Making IV was established. She received 1 L of normal saline. She will receive 15 mg of Toradol IV push and 25 mg of Benadryl IV push. This will be followed by 10 mg of Reglan. Will reassess. Patient was reassessed at 2220. She reported 30% reduction in her pain. She was reassessed again at 2255. She states there is been no change. IV Keppra was ordered. Patient was reassessed at 2355. She states she has no improvement. Will order 1 g of Solu-Medrol. If she continues to have headache after infusion of the Solu-Medrol she will require admission for status migraine. ED Disposition - Plan for ED Patient: Diagnosis: Intractable migraine without aura and with status migrainosus Instructions: ED Headache Migraine Referrals: [facility] Doctor,Out of [Primary Care Provider] - 1-2 Days if not improving
[2018-07-04] MEDS: 0.9% Normal Saline 1,000 ML 999 ML IV (21:04)
[2018-07-04] MEDS: DiphenhydrAMINE 50 MG/ML Syringe 25 MG IV (21:05)
[2018-07-04] MEDS: Ketorolac 30 MG/ML Syringe 15 MG IV (21:06)
[2018-07-04] MEDS: Metoclopramide 10 MG/2 ML Vial IV (21:08)
[2018-07-04] MEDS: levETIRAcetam IV 1,000 MG/100 ML BAG 400 MG IV (23:17)
[2018-07-04] MEDS: Ondansetron 4 MG/2 ML Vial IV (23:38)
[2018-07-05] VITALS (7 sets, daily range): BP systolic 109–137; BP diastolic 55–94; PULSE 86–104; RESP 16–18; TEMP 36.3–36.7; O2SAT 96–98; BMI 38.1
[2018-07-05] MEDS: HYDROmorphone 1 MG/ML Syringe IV (03:35)
--- NOTE | 2018-07-05 03:58 | ED.DCSUM_ITS ---
- ER Visit Summary Date of Service: 07/05/18 Chief Complaint: Addendum to initial dictation by Dr. Man [] History of Present Illness: The patient is a 52 F who presented with a headache since yesterday. Care of patient turned over to me awaiting reevaluation after treatment with Solu-Medrol. Patient had received a GI cocktail and did not have any pain relief. Patient also received Keppra followed by IV steroids and continues to complain of a severe headache. Patient has a history of migraines and stated that this was typical of her headaches. She complains of photophobia as well as nausea. Patient normally gets Botox injections for her migraines. She denies any falls or head injuries. She denies recent illness. [] Physical Examination: [HEENT-PERRLA, EOMI. Cranial nerves II through XII grossly intact. TMs clear. Mucous membranes moist. No adenopathy. Cardiovascular-regular rate and rhythm without murmur or ectopy Lungs-clear to auscultation, chest wall stable without crepitus or subcu emphysema Abdomen-normoactive bowel sounds, soft, nontender, no rebound or rigidity, no peritoneal signs. Neuro ored-usewxj-wydk and heel dubose testing within normal limits, negative Romberg, negative pronator drift, fundi benign Extremities-intact ?4, normal range of motion, normal pulses, atraumatic] Test Results: [None indicated] Emergency Department Course and Treatment: [Patient had her IV steroids and did not get any pain relief with that. I did give her a milligram of Dilaudid IV. Patient will be admitted for pain control. I am told patient has had prior admissions for intractable headaches. I do not feel patient requires any imaging at this time.] Treatment Plan: [Admit] Disposition: [Admit] Impression: [Intractable headache] This note was generated with [employer] dictation software. It may contain incorrect words, spelling, and punctuation that were not noted in review of the chart prior to signing ED Disposition - Plan for ED Patient: Diagnosis: Intractable migraine without aura and with status migrainosus Instructions: ED Headache Migraine Referrals: [facility] Doctor,Out of [Primary Care Provider] - 1-2 Days if not improving
--- NOTE | 2018-07-05 05:03 | PCM.HP.STD ---
Problem List (1) Status migrainosus Status: Acute History of Present Illness Date of Admission: 07/05/18 Chief Complaint: headache The patient is a 52 year old F with a significant history of chronic migraine and on every 3 months Botox injections; GERD; hypothyroidism; anxiety; depression; allergies and on weekly allergy shots and daily allergy medication; who presented to the emergency department because of a 2-day history of progressively worsening excruciating headache. Her headache started from the frontal head and progressed to the occipital area. Associated with her symptoms is photophobia; sonophobia and neck pain. She has tried sleeping in a recliner; placed eyes on her head and tried a combo of multiple home medication without any relief. She reports that typically when her migraines she takes Excedrin-migraine; and if it does not go away she takes a cocktail of Benadryl Reglan and ibuprofen. If headache typically persist she go ahead and take Imitrex. She reported that initially she was having a headache but then she was thinking that it was from her sinuses since she recently had a sinus surgery. When her headache persisted she tried the regimen described above but her headache did not go away. She sees Dr. Erwin, neurologist at [facility] for her chronic migraine. Further patient has nausea and she feels off balance when walking. She reports that she might be menopausal. She reports that recently she has been off work because of a sinus surgery and at home her son does all the facility coordinator because of restriction of lifting no more than 10 pounds or bending after her recent sinus surgery. The emergency department patient was given a cocktail of medication including Benadryl; Dilaudid; Toradol; Keppra IV and Solu-Medrol 1000 mg without any real relief. Also she received Zofran. She reports only relief from nausea with the administration of the ED meds. Her last Botox injection for migraine was about 3 weeks ago. She reported that typically she has recurrence of her migraine when it gets into the last end of her 3-month injections Past Medical History Past Medical History (Chronic Problems): Chronic Problems Seizure (Chronic) Remotely, x 1, she notes secondary to medication Hypothyroidism (Chronic) Obesity (BMI 30.0-34.9) (Chronic) OAB (overactive bladder) (Chronic) Bipolar disorder (Chronic) Chronic constipation (Chronic) Iron deficiency anemia (Chronic) RLS (restless legs syndrome) (Chronic) Chronic back pain (Chronic) GERD (gastroesophageal reflux disease) (Chronic) Allergies morphine Allergy (Verified 07/04/18 22:20) Itching acetaminophen [From Vicodin] Adverse Reaction (Verified 07/04/18 22:20) Other hydrocodone [From Vicodin] Adverse Reaction (Verified 07/04/18 22:20) Other nitrous oxide Adverse Reaction (Verified 07/05/18 04:57) Nausea/Vom/Diarrhea sulfamethoxazole [From Bactrim] Adverse Reaction (Verified 07/04/18 22:20) Nausea/Vom/Diarrhea trimethoprim [From Bactrim] Adverse Reaction (Verified 07/04/18 22:20) Nausea/Vom/Diarrhea Home Medications: Ambulatory Orders Medication Instructions Recorded Aspirin [Aspirin, Baby] 81 mg PO DAILY@0800 01/07/18 Dicyclomine HCl [Bentyl] 10 mg PO ACHS 01/07/18 Epi Pen (for allergic rxn) 0.3 mg IM X1 01/07/18 Fluticasone 110 Mcg [Flovent 110 1 puff INHALATION DAILY 01/07/18 Mcg] Ibuprofen [Motrin] 600 mg PO Q8H PRN PRN 01/07/18 Levothyroxine [Synthroid] 100 mg PO DAILY 01/07/18 Loratadine 10 mg PO QHS MDD allergy 01/07/18 Lorazepam [Ativan] 0.5 mg PO PRN PRN 01/07/18 Ranitidine [Zantac] 150 mg PO BID 01/07/18 Sennosides [Senna Laxative] 8.6 mg PO BID 01/07/18 busPIRone [Buspar] 15 mg PO 4X/DAY 01/07/18 Sumatriptan Succinate [Imitrex] 4 mg SQ .X1 PRN #2 ml 06/06/18 Amitriptyline HCl [Elavil] 50 mg PO QHS 07/05/18 Esomeprazole Magnesium [Nexium 20 mg PO BID 07/05/18 24Hr] Gabapentin [Neurontin] 200 mg PO DAILY 07/05/18 Hyoscyamine Sulfate 1 tab SUBLINGUAL Q4H PRN PRN 07/05/18 Lubiprostone [Amitiza] 8 mcg PO BID 07/05/18 Ondansetron [Zofran Odt] 4 - 8 mg PO Q8H PRN PRN 07/05/18 Oxycodone HCl/Acetaminophen 1 tablet PO Q6H PRN PRN 07/05/18 [Percocet 5/325] Sodium Chloride 0.65% [Stuckey Nasal 1 spray NASAL PRN PRN 07/05/18 [place]] Surgical History: - - Lithotripsy, cholecystectomy, tonsillectomy, sinus surgery, wrist surgery, D&C Lives: Spouse/ Significant Other Smoking Status: Never smoker Alcohol: None - *Family History Maternal History Items: - - Patient notes maternal family history of migraines, depression and anxiety, breast cancer. Paternal History Items: Cancer - Breast cancer and lung cancer Sibling History Items: - - Patient notes a sister with depression and anxiety as well as migraines. Review of Systems Constitutional: Denies: Chills, Fever, Weight Change HEENT: Reports: Head Aches. Denies: Sinus Congestion, Sinus Drainage Cardiovascular: Denies: Chest Pain, Palpitations Respiratory: Denies: Cough, Shortness of breath at rest, Sputum production Gastrointestinal: Reports: Nausea. Denies: Abdominal Pain, Vomiting Genitourinary: Denies: Dysuria Musculoskeletal: Denies: Joint Pain, Joint Tenderness Skin: Denies: Rash, Wounds Neurological: Denies: Numbness, Tingling, Focal weakness Psychiatric: Reports: Anxiety, Depression. Denies: Homicidal Ideations, Suicidal Ideations Hematologic/ Lymphatic: Denies: Easy Bruising, Easy Bleeding VTE Information - Inpt Only VTE Present on Admission: No VTE Mechan Device Prophylaxis: None VTE Pharm Prophylaxis ordered?: Yes Patient Problems: Active and Suspected Problems Intractable migraine without aura and with status migrainosus (Acute) - Physical Exam General: Alert, Oriented x3, Cooperative HEENT: Atraumatic, Normocephalic, - - Tender frontal area Neck: Supple, No JVD, Negative Carotid Bruits Lungs: Clear to auscultation, Normal air movement Cardiovascular: Regular rate, No murmurs Abdomen: Bowel Sounds Present, Soft, Non Tender Extremities: No edema, Capillary Refill Less than 3 Seconds Skin: No rashes, No breakdown Musculoskeletal: No Tenderness to Palpation of Joints or Extremities Neurological: Neuro grossly intact Psych/Mental Status: Normal Affect, Appropriate Vital Signs Temp Pulse Resp BP Pulse Ox 97.5 F L 89 18 127/94 H 97 07/05/18 04:47 07/05/18 04:47 07/05/18 04:47 07/05/18 04:47 07/05/18 04:47 Oxygen Delivery Method Room Air Weight: 100.7 kg Body Mass Index (BMI) 38.1 Assessment/Plan All Active Problems Migraine (Acute) Status migrainosus (Acute) Intractable migraine without aura and with status migrainosus (Acute) The patient is a 52 year old F with a significant history of chronic migraine and on every 3 months Botox injections; GERD; hypothyroidism; anxiety; depression; allergies and on weekly allergy shots and daily allergy medication; who presented to the emergency department because of a 2-day history of progressively worsening excruciating headache unrelieved with multiple medication consistent with status migrainosus. Status Migrainous Received multiple medication at the emergency department. Continue patient on Reglan as needed for nausea; dihydroergotamine x1 ordered. Toradol scheduled She was ordered Percocet after her sinus surgery but because of nausea she was not taking the Percocet. Will order Percocet prn at this time. Zofran as needed in addition to Reglan as needed for nausea. She follows up with Dr. Erwin, neurologist at [place] for botox injections. Ibuprofen as needed Depression Amitriptyline continued Anxiety Buspirone continued Ativan as needed Allergies She gets weekly shots. Loratadine continued Budesonide Hypothyroidism Synthroid continued IBS Lubiprostone; Senokot; and Hycosamine continued GERD:PPI continued; H2 blockers continued DVT prophylaxis: Lovenox continued. Code Visit OBSV E&M: 16059 Initial observation care L3
--- NOTE | 2018-07-05 05:20 | HP.PCM_ITS ---
Problem List (1) Status migrainosus Status: Acute History of Present Illness Date of Admission: 07/05/18 Chief Complaint: headache The patient is a 52 year old F with a significant history of chronic migraine and on every 3 months Botox injections; GERD; hypothyroidism; anxiety; depression; allergies and on weekly allergy shots and daily allergy medication; who presented to the emergency department because of a 2-day history of progressively worsening excruciating headache. Her headache started from the frontal head and progressed to the occipital area. Associated with her symptoms is photophobia; sonophobia and neck pain. She has tried sleeping in a recliner; placed eyes on her head and tried a combo of multiple home medication without any relief. She reports that typically when her migraines she takes Excedrin- migraine; and if it does not go away she takes a cocktail of Benadryl Reglan and ibuprofen. If headache typically persist she go ahead and take Imitrex. She reported that initially she was having a headache but then she was thinking that it was from her sinuses since she recently had a sinus surgery. When her headache persisted she tried the regimen described above but her headache did not go away. She sees Dr. Erwin, neurologist at [facility] for her chronic migraine. Further patient has nausea and she feels off balance when walking. She reports that she might be menopausal. She reports that recently she has been off work because of a sinus surgery and at home her son does all the public health epidemiologist because of restriction of lifting no more than 10 pounds or bending after her recent sinus surgery. The emergency department patient was given a cocktail of medication including Benadryl; Dilaudid; Toradol; Keppra IV and Solu-Medrol 1000 mg without any real relief. Also she received Zofran. She reports only relief from nausea with the administration of the ED meds. Her last Botox injection for migraine was about 3 weeks ago. She reported that typically she has recurrence of her migraine when it gets into the last end of her 3-month injections Past Medical History Past Medical History (Chronic Problems): Chronic Problems Seizure (Chronic) Remotely, x 1, she notes secondary to medication Hypothyroidism (Chronic) Obesity (BMI 30.0-34.9) (Chronic) OAB (overactive bladder) (Chronic) Bipolar disorder (Chronic) Chronic constipation (Chronic) Iron deficiency anemia (Chronic) RLS (restless legs syndrome) (Chronic) Chronic back pain (Chronic) GERD (gastroesophageal reflux disease) (Chronic) Allergies morphine Allergy (Verified 07/04/18 22:20) Itching acetaminophen [From Vicodin] Adverse Reaction (Verified 07/04/18 22:20) Other hydrocodone [From Vicodin] Adverse Reaction (Verified 07/04/18 22:20) Other nitrous oxide Adverse Reaction (Verified 07/05/18 04:57) Nausea/Vom/Diarrhea sulfamethoxazole [From Bactrim] Adverse Reaction (Verified 07/04/18 22:20) Nausea/Vom/Diarrhea trimethoprim [From Bactrim] Adverse Reaction (Verified 07/04/18 22:20) Nausea/Vom/Diarrhea Home Medications: Ambulatory Orders Medication Instructions Recorded Aspirin [Aspirin, Baby] 81 mg PO DAILY@0800 01/07/18 Dicyclomine HCl [Bentyl] 10 mg PO ACHS 01/07/18 Epi Pen (for allergic rxn) 0.3 mg IM X1 01/07/18 Fluticasone 110 Mcg [Flovent 110 1 puff INHALATION DAILY 01/07/18 Mcg] Ibuprofen [Motrin] 600 mg PO Q8H PRN PRN 01/07/18 Levothyroxine [Synthroid] 100 mg PO DAILY 01/07/18 Loratadine 10 mg PO QHS MDD allergy 01/07/18 Lorazepam [Ativan] 0.5 mg PO PRN PRN 01/07/18 Ranitidine [Zantac] 150 mg PO BID 01/07/18 Sennosides [Senna Laxative] 8.6 mg PO BID 01/07/18 busPIRone [Buspar] 15 mg PO 4X/DAY 01/07/18 Sumatriptan Succinate [Imitrex] 4 mg SQ .X1 PRN #2 ml 06/06/18 Amitriptyline HCl [Elavil] 50 mg PO QHS 07/05/18 Esomeprazole Magnesium [Nexium 20 mg PO BID 07/05/18 24Hr] Gabapentin [Neurontin] 200 mg PO DAILY 07/05/18 Hyoscyamine Sulfate 1 tab SUBLINGUAL Q4H PRN PRN 07/05/18 Lubiprostone [Amitiza] 8 mcg PO BID 07/05/18 Ondansetron [Zofran Odt] 4 - 8 mg PO Q8H PRN PRN 07/05/18 Oxycodone HCl/Acetaminophen 1 tablet PO Q6H PRN PRN 07/05/18 [Percocet 5/325] Sodium Chloride 0.65% [[place] Nasal 1 spray NASAL PRN PRN 07/05/18 [place]] Surgical History: - - Lithotripsy, cholecystectomy, tonsillectomy, sinus s urgery, wrist surgery, D&C Lives: Spouse/ Significant Other Smoking Status: Never smoker Alcohol: None - *Family History Maternal History Items: - - Patient notes maternal family history of migraines, depression and anxiety, breast cancer. Paternal History Items: Cancer - Breast cancer and lung cancer Sibling History Items: - - Patient notes a sister with depression and anxiety as well as migraines. Review of Systems Constitutional: Denies: Chills, Fever, Weight Change HEENT: Reports: Head Aches. Denies: Sinus Congestion, Sinus Drainage Cardiovascular: Denies: Chest Pain, Palpitations Respiratory: Denies: Cough, Shortness of breath at rest, Sputum production Gastrointestinal: Reports: Nausea. Denies: Abdominal Pain, Vomiting Genitourinary: Denies: Dysuria Musculoskeletal: Denies: Joint Pain, Joint Tenderness Skin: Denies: Rash, Wounds Neurological: Denies: Numbness, Tingling, Focal weakness Psychiatric: Reports: Anxiety, Depression. Denies: Homicidal Ideations, Suicidal Ideations Hematologic/ Lymphatic: Denies: Easy Bruising, Easy Bleeding VTE Information - Inpt Only VTE Present on Admission: No VTE Mechan Device Prophylaxis: None VTE Pharm Prophylaxis ordered?: Yes Patient Problems: Active and Suspected Problems Intractable migraine without aura and with status migrainosus (Acute) - Physical Exam General: Alert, Oriented x3, Cooperative HEENT: Atraumatic, Normocephalic, - - Tender frontal area Neck: Supple, No JVD, Negative Carotid Bruits Lungs: Clear to auscultation, Normal air movement Cardiovascular: Regular rate, No murmurs Abdomen: Bowel Sounds Present, Soft, Non Tender Extremities: No edema, Capillary Refill Less than 3 Seconds Skin: No rashes, No breakdown Musculoskeletal: No Tenderness to Palpation of Joints or Extremities Neurological: Neuro grossly intact Psych/Mental Status: Normal Affect, Appropriate Vital Signs Temp Pulse Resp BP Pulse Ox 97.5 F L 89 18 127/94 H 97 07/05/18 04:47 07/05/18 04:47 07/05/18 04:47 07/05/18 04:47 07/05/18 04:47 Oxygen Delivery Method Room Air Weight: 100.7 kg Body Mass Index (BMI) 38.1 Assessment/Plan All Active Problems Migraine (Acute) Status migrainosus (Acute) Intractable migraine without aura and with status migrainosus (Acute) The patient is a 52 year old F with a significant history of chronic migraine and on every 3 months Botox injections; GERD; hypothyroidism; anxiety; depression; allergies and on weekly allergy shots and daily allergy medication; who presented to the emergency department because of a 2-day history of progressively worsening excruciating headache unrelieved with multiple medication consistent with status migrainosus. Status Migrainous Received multiple medication at the emergency department. Continue patient on Reglan as needed for nausea; dihydroergotamine x1 ordered. Toradol scheduled She was ordered Percocet after her sinus surgery but because of nausea she was not taking the Percocet. Will order Percocet prn at this time. Zofran as needed in addition to Reglan as needed for nausea. She follows up with Dr. Erwin, neurologist at [place] for botox injections. Ibuprofen as needed Depression Amitriptyline continued Anxiety Buspirone continued Ativan as needed Allergies She gets weekly shots. Loratadine continued Budesonide Hypothyroidism Synthroid continued IBS Lubiprostone; Senokot; and Hycosamine continued GERD:PPI continued; H2 blockers continued DVT prophylaxis: Lovenox continued. Code Visit OBSV E&M: 59038 Initial observation care L3
[2018-07-05] MEDS: Dihydroergotamine 1 MG/ML Ampul IV (05:35)
[2018-07-05 06:31] LABS: Absolute Lymphocyte Count 1.02 X10^3/ul (0.83-4.51); Absolute Neutrophil Count 6.3 X10^3/uL (2.0-7.7); Hematocrit 42.1 % (37-47); Hemoglobin 13.4 g/dl (12.0-15.0); Lymphocyte # 1.02 X10^3/ul (4.0); Lymphocyte % 13.8 % (19-41); Mean Corp Hgb Conc 31.8 g/gl (32-36); Mean Corpuscular Hgb 29.4 pg (27.0-32.0); Mean Corpuscular Volume 92.3 fL (81-99); Mean Platelet Vol. 9.2 fl (6.2-12.0); Monocyte# 0.03 X10^3/uL; Monocyte% 0.4 % (0-10); Neutrophil # 6.31 X10^3/uL (2.7-7.7); Neutrophil % 85.4 % (47-70); Platelet Count 306 K/mm3 (150-450); RBC Distribution Width CV 14.4 % (11.6-14.6); RBC Distribution Width SD 48.6 fl (35.1-43.9); Red Blood Count 4.56 M/mm3 (4.2-5.4); White Blood Count 7.4 K/mm3 (4.4-11.0)
[2018-07-05 06:40] LABS: POSITIVE COUNT NO; POSITIVE DIFFERENTIAL NO; POSITIVE MORPHOLOGY NO
[2018-07-05 06:55] LABS: Anion Gap 11 (5-15); BUN 14 mg/dL (7-18); BUN/Creat Ratio 12.1 RATIO (10-20); Calcium,Total 8.8 mg/dL (8.5-10.1); Chloride 106 mmol/L (98-107); Creatinine, Serum 1.16 mg/dL (0.55-1.02); EST Glomerular Filtration Rate 52 mL/min (>60); Est Glom Filt Rate - Afr Amer 63 mL/min (>60); Estimated Creatinine Clearance 49.55 ml/min; Glucose 170 mg/dL (74-106); Potassium 3.5 mmol/L (3.5-5.1); Sodium Level 141 mmol/L (136-145)
[2018-07-05] MEDS: 0.9% NaCl Peripheral Flush Adult/Peds IV (06:58)
[2018-07-05] MEDS: Levothyroxine 100 MCG Tablet PO (06:58)
[2018-07-05] MEDS: Ketorolac 15 MG/ML Vial IV ×2 (06:58→12:20)
[2018-07-05] MEDS: Budesonide Respules 0.5 MG/2 ML AMPUL.NEB. INHALATION (07:38)
[2018-07-05] MEDS: Aspirin 81 MG TAB.CHEW PO (08:01)
[2018-07-05] MEDS: Dicyclomine 10 MG Capsule PO ×2 (08:01→12:15)
[2018-07-05] MEDS: LORazepam 0.5 MG Tablet PO (08:01)
[2018-07-05] MEDS: Enoxaparin 40 MG/0.4 ML Syringe SC (09:06)
[2018-07-05] MEDS: Sodium Chloride 0.65% 1 SPRAY SPRAY.BTL NASAL (09:08)
[2018-07-05] MEDS: Famotidine 20 MG Tablet PO (09:09)
[2018-07-05] MEDS: Pantoprazole Sodium 20 MG Tablet PO (09:10)
[2018-07-05] MEDS: busPIRone 15 MG TABLET PO ×2 (09:10→13:13)
[2018-07-05] MEDS: oxyCODONE 5 MG Tablet PO (09:13)
--- NOTE | 2018-07-05 12:06 | PCM.PN.HOSP ---
Patient Problems: Active and Suspected Problems Intractable migraine without aura and with status migrainosus (Acute) Subjective: Feeling better. But still with migraine. Stated that the hydromorphone helped her the most of all the medications that were given to her previously. Vitals/I&O's: Vital Signs Temp Pulse Resp BP Pulse Ox 36.3 C L 104 H 18 113/61 96 07/05/18 09:14 07/05/18 09:14 07/05/18 09:14 07/05/18 09:14 07/05/18 09:14 Oxygen Delivery Method Room Air Weight: 100.7 kg Body Mass Index (BMI) 38.1 Intake and Output for Last 24 Hours 07/03/18 07/04/18 07/05/18 23:59 23:59 23:59 Intake Total 480 / 480 Balance 480 / 480 General: Alert, No apparent distress HEENT: Atraumatic, Normocephalic, - - frontal and maxillary sinus tenderness (out of proportion to exam) Oral: Moist Mucosa, No Gingival or Mucosal Lesions/ Ulcerations Neck: No Nodes, Thyroid Normal Size and Texture Lungs: Clear to auscultation, Normal air movement, No rhonchi, No wheeze Cardiovascular: Regular rate, Regular Rhythm, Normal S1, Normal S2 Abdomen: Bowel Sounds Present, Soft, Non Tender, Non-Distended, No Hepato-splenomegaly Extremities: No edema, Capillary Refill Less than 3 Seconds Skin: No rashes, No breakdown Psych/Mental Status: Normal Affect, Appropriate Laboratory Results 07/05/18 05:50: WBC 7.4, RBC 4.56, Hgb 13.4, Hct 42.1, MCV 92.3, MCH 29.4, MCHC 31.8 L, RDW 14.4, RDW Differential 48.6 H, Plt Count 306, MPV 9.2, Immature Gran % (Auto) 0.400, Neut % (Auto) 85.4 H, Lymph % (Auto) 13.8 L, [place] % (Auto) 0.4, Eos % (Auto) 0.0, Baso % (Auto) 0.0, Absolute Neuts (auto) 6.3, Absolute Lymphs (auto) 1.02, Total Counted Not Reportable 07/05/18 05:50: Sodium 141, Potassium 3.5, Chloride 106, Carbon Dioxide 24.0, Anion Gap 11, BUN 14, Creatinine 1.16 H, Estim Creat Clear Calc 49.55, Est GFR (MDRD) Af Amer 63, Est GFR (MDRD) Non-Af 52 L, BUN/Creatinine Ratio 12.1, Glucose 170 H, Calcium 8.8 Current Medications Acetaminophen (Tylenol) 1,000 mg PO Q8H PRN PRN PRN Reason: HEADACHE Amitriptyline HCl (Elavil) 50 mg PO QHS [facility] Aspirin (Aspirin, Baby) 81 mg PO DAILY@0800 [facility] Last Admin: 07/05/18 08:01 Dose: 81 mg Bisacodyl (Dulcolax) 5 mg PO DAILY PRN PRN PRN Reason: Constipation Budesonide (Pulmicort Aerosol) 0.5 mg INHALATION Q12H.RT [facility] Last Admin: 07/05/18 07:38 Dose: 0.5 mg Buspirone HCl (Buspar) 15 mg PO 4X/DAY [facility] Last Admin: 07/05/18 09:10 Dose: 15 mg Dicyclomine HCl (Bentyl) 10 mg PO ACHS [facility] Last Admin: 07/05/18 08:01 Dose: 10 mg Diphenhydramine HCl (Benadryl) 25 mg IV Q6H PRN PRN PRN Reason: HEADACHE Enoxaparin Sodium (Lovenox) 40 mg SC DAILY@1000 [facility] Last Admin: 07/05/18 09:06 Dose: 40 mg Famotidine (Pepcid) 20 mg PO BID [facility] Last Admin: 07/05/18 09:09 Dose: 20 mg Hyoscyamine Sulfate (Levsin/Sl) 0.125 mg SUBLINGUAL Q4H PRN PRN PRN Reason: bowel spasms Ketorolac Tromethamine (Toradol) 15 mg IV Q6 [facility] Stop: 07/10/18 04:15 Last Admin: 07/05/18 06:58 Dose: 15 mg Levothyroxine Sodium (Synthroid) 100 mcg PO DAILY@0600 [facility] Last Admin: 07/05/18 06:58 Dose: 100 mcg Loratadine (Claritin) 10 mg PO QHS [facility] Lorazepam (Ativan) 0.5 mg PO DAILY PRN PRN PRN Reason: ANXIETY Last Admin: 07/05/18 08:01 Dose: 0.5 mg Magnesium Hydroxide (Milk Of Magnesia) 30 ml PO DAILY PRN PRN PRN Reason: Constipation Non-Formulary Medication (Lubiprostone) 8 mcg PO BID [facility] Pantoprazole Sodium (Protonix) 20 mg PO BID [facility] Last Admin: 07/05/18 09:10 Dose: 20 mg Promethazine HCl (Phenergan) 12.5 mg IV Q6H PRN PRN PRN Reason: HEADACHE Senna (Senokot) 1 tablet PO BID NAY Last Admin: 07/05/18 09:10 Dose: Not Given Sodium Chloride () 5 - 15 ml IV UD PRN PRN Reason: SALINE FLUSH Last Admin: 07/05/18 06:58 Dose: 10 ml Sodium Chloride ([place] Nasal [place]) 1 spray NASAL Q1H PRN PRN Reason: ALLERGIES Medical Necessity - Tobacco Use Smoking Status: Never smoker Assessment/Plan All Active Problems Migraine (Acute) Status migrainosus (Acute) Intractable migraine without aura and with status migrainosus (Acute) 1. Intractable migraine improved, but still ongoing persists despite : 1000mg solumedrol, DHE Continue scheduled ketorolac, add PRN acetaminophen, promethazine, diphenhydramine. 1 x dose of sumatriptan Consult neurology if refractory to that Follow up with Dr. Erwin (her neurologist) as outpt. Advised patient that narcotics can lead to rebound headaches and will discontinue all narcotics. She was concerned that it would compromise her recent sinus/septal surgery. I assured her pain will not compromise her surgery. 2. DVT proph: LMWH. Code Visit Procedures: Other Procedure - See Report - Non-billable rounding.
--- NOTE | 2018-07-05 12:11 | PN_ITS ---
Patient Problems: Active and Suspected Problems Intractable migraine without aura and with status migrainosus (Acute) Subjective: Feeling better. But still with migraine. Stated that the hydromorphone helped her the most of all the medications that were given to her previously. Vitals/I&O's: Vital Signs Temp Pulse Resp BP Pulse Ox 36.3 C L 104 H 18 113/61 96 07/05/18 09:14 07/05/18 09:14 07/05/18 09:14 07/05/18 09:14 07/05/18 09:14 Oxygen Delivery Method Room Air Weight: 100.7 kg Body Mass Index (BMI) 38.1 Intake and Output for Last 24 Hours 07/03/18 07/04/18 07/05/18 23:59 23:59 23:59 Intake Total 480 / 480 Balance 480 / 480 General: Alert, No apparent distress HEENT: Atraumatic, Normocephalic, - - frontal and maxillary sinus tenderness (out of proportion to exam) Oral: Moist Mucosa, No Gingival or Mucosal Lesions/ Ulcerations Neck: No Nodes, Thyroid Normal Size and Texture Lungs: Clear to auscultation, Normal air movement, No rhonchi, No wheeze Cardiovascular: Regular rate, Regular Rhythm, Normal S1, Normal S2 Abdomen: Bowel Sounds Present, Soft, Non Tender, Non-Distended, No Hepato-splenomegaly Extremities: No edema, Capillary Refill Less than 3 Seconds Skin: No rashes, No breakdown Psych/Mental Status: Normal Affect, Appropriate Laboratory Results 07/05/18 05:50: WBC 7.4, RBC 4.56, Hgb 13.4, Hct 42.1, MCV 92.3, MCH 29.4, MCHC 31.8 L, RDW 14.4, RDW Differential 48.6 H, Plt Count 306, MPV 9.2, Immature Gran % (Auto) 0.400, Neut % (Auto) 85.4 H, Lymph % (Auto) 13.8 L, [place] % (Auto) 0.4, Eos % (Auto) 0.0, Baso % (Auto) 0.0, Absolute Neuts (auto) 6.3, Absolute Lymphs (auto) 1.02, Total Counted Not Reportable 07/05/18 05:50: Sodium 141, Potassium 3.5, Chloride 106, Carbon Dioxide 24.0, Anion Gap 11, BUN 14, Creatinine 1.16 H, Estim Creat Clear Calc 49.55, Est GFR (MDRD) Af Amer 63, Est GFR (MDRD) Non-Af 52 L, BUN/Creatinine Ratio 12.1, Glucose 170 H, Calcium 8.8 Current Medications Acetaminophen (Tylenol) 1,000 mg PO Q8H PRN PRN PRN Reason: HEADACHE Amitriptyline HCl (Elavil) 50 mg PO QHS [facility] Aspirin (Aspirin, Baby) 81 mg PO DAILY@0800 [facility] Last Admin: 07/05/18 08:01 Dose: 81 mg Bisacodyl (Dulcolax) 5 mg PO DAILY PRN PRN PRN Reason: Constipation Budesonide (Pulmicort Aerosol) 0.5 mg INHALATION Q12H.RT [facility] Last Admin: 07/05/18 07:38 Dose: 0.5 mg Buspirone HCl (Buspar) 15 mg PO 4X/DAY [facility] Last Admin: 07/05/18 09:10 Dose: 15 mg Dicyclomine HCl (Bentyl) 10 mg PO ACHS [facility] Last Admin: 07/05/18 08:01 Dose: 10 mg Diphenhydramine HCl (Benadryl) 25 mg IV Q6H PRN PRN PRN Reason: HEADACHE Enoxaparin Sodium (Lovenox) 40 mg SC DAILY@1000 [facility] Last Admin: 07/05/18 09:06 Dose: 40 mg Famotidine (Pepcid) 20 mg PO BID [facility] Last Admin: 07/05/18 09:09 Dose: 20 mg Hyoscyamine Sulfate (Levsin/Sl) 0.125 mg SUBLINGUAL Q4H PRN PRN PRN Reason: bowel spasms Ketorolac Tromethamine (Toradol) 15 mg IV Q6 [facility] Stop: 07/10/18 04:15 Last Admin: 07/05/18 06:58 Dose: 15 mg Levothyroxine Sodium (Synthroid) 100 mcg PO DAILY@0600 [facility] Last Admin: 07/05/18 06:58 Dose: 100 mcg Loratadine (Claritin) 10 mg PO QHS [facility] Lorazepam (Ativan) 0.5 mg PO DAILY PRN PRN PRN Reason: ANXIETY Last Admin: 07/05/18 08:01 Dose: 0.5 mg Magnesium Hydroxide (Milk Of Magnesia) 30 ml PO DAILY PRN PRN PRN Reason: Constipation Non-Formulary Medication (Lubiprostone) 8 mcg PO BID NAY Pantoprazole Sodium (Protonix) 20 mg PO BID [facility] Last Admin: 07/05/18 09:10 Dose: 20 mg Promethazine HCl (Phenergan) 12.5 mg IV Q6H PRN PRN PRN Reason: HEADACHE Senna (Senokot) 1 tablet PO BID NAY Last Admin: 07/05/18 09:10 Dose: Not Given Sodium Chloride () 5 - 15 ml IV UD PRN PRN Reason: SALINE FLUSH Last Admin: 07/05/18 06:58 Dose: 10 ml Sodium Chloride ([place] Nasal [place]) 1 spray NASAL Q1H PRN PRN Reason: ALLERGIES Medical Necessity - Tobacco Use Smoking Status: Never smoker Assessment/Plan All Active Problems Migraine (Acute) Status migrainosus (Acute) Intractable migraine without aura and with status migrainosus (Acute) 1. Intractable migraine * improved, but still ongoing * persists despite : 1000mg solumedrol, DHE * Continue scheduled ketorolac, add PRN acetaminophen, promethazine, diphenhydramine. 1 x dose of sumatriptan * Consult neurology if refractory to that * Follow up with Dr. Erwin (her neurologist) as outpt. * Advised patient that narcotics can lead to rebound headaches and will discontinue all narcotics. She was concerned that it would compromise her recent sinus/septal surgery. I assured her pain will not compromise her surgery. 2. DVT proph: LMWH. Code Visit Procedures: Other Procedure - See Report - Non-billable rounding.
[2018-07-05] MEDS: SUMAtriptan 6 MG/0.5 ML Vial SC (12:15)
[2018-07-05] MEDS: Hyoscyamine Sulfate 0.125 MG Tablet SUBLINGUAL (13:12)
--- NOTE | 2018-07-05 15:01 | DCINST_ITS ---
- Discharge Diagnoses Current Active Problems: Current Active and Chronic Problems Intractable migraine without aura and with status migrainosus (Acute) You will use the following diet at home:: No restrictions Your food should be the consistency of: Regular Discharge Activity: Return to Normal Activity Call your doctor if you observe: - - worsening migraine. Instructions: ED Headache Migraine Allergies/Adverse Reactions: Allergies morphine Allergy (Verified 07/04/18 22:20) Itching acetaminophen [From Vicodin] Adverse Reaction (Verified 07/04/18 22:20) Other hydrocodone [From Vicodin] Adverse Reaction (Verified 07/04/18 22:20) Other nitrous oxide Adverse Reaction (Verified 07/05/18 04:57) Nausea/Vom/Diarrhea sulfamethoxazole [From Bactrim] Adverse Reaction (Verified 07/04/18 22:20) Nausea/Vom/Diarrhea trimethoprim [From Bactrim] Adverse Reaction (Verified 07/04/18 22:20) Nausea/Vom/Diarrhea Medications to take at Discharge Aspirin [Aspirin, Baby] 81 mg PO DAILY@0800 01/07/18 Dicyclomine HCl [Bentyl] 10 mg PO ACHS 01/07/18 Epi Pen (for allergic rxn) 0.3 mg IM X1 01/07/18 Fluticasone 110 Mcg [Flovent 110 Mcg] 1 puff INHALATION DAILY 01/07/18 Ibuprofen [Motrin] 600 mg PO Q8H PRN PRN 01/07/18 Levothyroxine [Synthroid] 100 mg PO DAILY 01/07/18 Loratadine 10 mg PO QHS MDD allergy 01/07/18 Lorazepam [Ativan] 0.5 mg PO PRN PRN 01/07/18 Ranitidine [Zantac] 150 mg PO BID 01/07/18 Sennosides [Senna Laxative] 8.6 mg PO BID 01/07/18 busPIRone [Buspar] 15 mg PO 4X/DAY 01/07/18 Acetaminophen [Tylenol] 1,000 mg PO Q8H PRN PRN tablet 07/05/18 Amitriptyline HCl [Elavil] 50 mg PO QHS 07/05/18 DiphenhydrAMINE [Benadryl] 25 mg PO Q6H PRN #1 capsule 07/05/18 Esomeprazole Magnesium [Nexium 24Hr] 20 mg PO BID 07/05/18 Gabapentin [Neurontin] 200 mg PO DAILY 07/05/18 Hyoscyamine Sulfate 1 tab SUBLINGUAL Q4H PRN PRN 07/05/18 Lubiprostone [Amitiza] 8 mcg PO BID 07/05/18 Ondansetron [Zofran Odt] 4 - 8 mg PO Q8H PRN PRN 07/05/18 Oxycodone HCl/Acetaminophen [Percocet 5-325] 1 tablet PO Q6H PRN PRN 1 Days #0 07/05/18 Sodium Chloride 0.65% [[place] Nasal [place]] 1 spray NASAL PRN PRN 07/05/18 Sumatriptan Succinate [Imitrex] 4 mg SQ .X1 PRN PRN #2 ml 07/05/18 proMETHazine tablet [Phenergan tablet] 25 mg PO Q6H PRN PRN #20 tablet 07/05/18 The following prescriptions were given: proMETHazine tablet [Phenergan tablet] 25 mg PO Q6H PRN PRN #20 tablet PRN Reason: Migraine Symptoms Sumatriptan Succinate [Imitrex] 4 mg SQ .X1 PRN PRN #2 ml PRN Reason: Migraine Symptoms DiphenhydrAMINE [Benadryl] 25 mg PO Q6H PRN #1 capsule PRN Reason: Migraine Symptoms Primary Care Physician: [facility] Doctor,Out of [Primary Care Provider] - 1-2 Days if not improving Test Results: Test results from this visit will be discussed in further detail at your follow- up appointment, if applicable. Please Follow Up With: Babak Erwin - your neurologist When: 1-2 weeks Proposed Discharge Date: 07/05/18
--- NOTE | 2018-07-05 15:05 | DS.PCM_ITS ---
Discharge Date and Diagnosis - Problem List Patient Problems: Active and Suspected Problems Intractable migraine without aura and with status migrainosus (Acute) Date of Admission: 07/05/18 Date of Discharge: 07/05/18 - Primary Discharge Diagnosis Active and Suspected Problems Intractable migraine without aura and with status migrainosus (Acute) - Secondary Discharge Diagnosis Chronic Problems Seizure (Chronic) Remotely, x 1, she notes secondary to medication Hypothyroidism (Chronic) Obesity (BMI 30.0-34.9) (Chronic) OAB (overactive bladder) (Chronic) Bipolar disorder (Chronic) Chronic constipation (Chronic) Iron deficiency anemia (Chronic) RLS (restless legs syndrome) (Chronic) Chronic back pain (Chronic) GERD (gastroesophageal reflux disease) (Chronic) Hospital Course and Treatment Operations: None Procedures: None Summary of Care Provided: The patient is a 52 year old F presents with intractable migraine. Patient was seen on the for this complaint and received a liter of normal saline, Toradol, Benadryl, Reglan. She received IV Keppra and then 1 g of Solu-Medrol. Still was not having any relief and then did have relief when she received IV Dilaudid but her headache was only to recur. The patient did receive DHE which really did not help her headache much. I saw the patient and then ordered Imitrex, Phenergan and Benadryl. Patient states that her headache is improved but still ongoing. I walked into her room this morning and her TV was on. When I came back this afternoon at approximately 1430, TV was on with volume very loud and patient was looking at her phone. By brought to the patient's attention that I find hard to justify to keep patient in the hospital who is able to engage in these activities with a loud TV and her on her phone. Patient stated that she was just responded to a call from her son but nonetheless I feel that she is overall better. Patient was in agreement to being discharged. We will send a prescription for Imitrex to the right aid here in [facility] plus prescription for Phenergan. Patient advised to use Phenergan and Benadryl together if she does need for headaches. Patient sees a Dr. Erwin and [place], for where she is from. He has been giving her Botox injections about every 3 months to help with her migraines. I would advise that she follow-up with Dr. Erwin as outpatient. The patient is subjectively better and I did talk to the patient to minimize narcotics if she is having a to never use narcotics for migraines. Patient has had some recent sinus surgery so she is having some discomfort from that that she can certainly take the medication for that but advised of the potential rebound analgesia associated with that. Patient was concerned about her pain not being controlled for sinus surgery that may set her back. I did reassure her that by not taking pain medications is not going to set her sinus surgery back. [] Patient Problems: Active and Suspected Problems Intractable migraine without aura and with status migrainosus (Acute) - Physical Exam Vital Signs Temp Pulse Resp BP Pulse Ox 36.3 C L 104 H 18 113/61 96 07/05/18 09:14 07/05/18 09:14 07/05/18 09:14 07/05/18 09:14 07/05/18 09:14 Oxygen Delivery Method Room Air Weight: 100.7 kg Body Mass Index (BMI) 38.1 Intake and Output for Last 24 Hours 07/03/18 07/04/18 07/05/18 23:59 23:59 23:59 Intake Total 880 / 880 Balance 880 / 880 Laboratory Tests Past 24 Hrs 07/05/18 07/05/18 05:50 05:50 WBC 7.4 RBC 4.56 Hgb 13.4 Hct 42.1 MCV 92.3 MCH 29.4 MCHC 31.8 L RDW 14.4 RDW Differential 48.6 H Plt Count 306 MPV 9.2 Immature Gran % (Auto) 0.400 Neut % (Auto) 85.4 H Lymph % (Auto) 13.8 L [place] % (Auto) 0.4 Eos % (Auto) 0.0 Baso % (Auto) 0.0 Absolute Neuts (auto) 6.3 Absolute Lymphs (auto) 1.02 Total Counted Not Reportable Sodium 141 Potassium 3.5 Chloride 106 Carbon Dioxide 24.0 Anion Gap 11 BUN 14 Creatinine 1.16 H Estim Creat Clear Calc 49.55 Est GFR (MDRD) Af Amer 63 Est GFR (MDRD) Non-Af 52 L BUN/Creatinine Ratio 12.1 Glucose 170 H Calcium 8.8 Discharge Diet: No Restrictions Discharge Activity: Return to Normal Activity Call your doctor if you observe: - - worsening migraine. Home Medications: Medications to take at Discharge Aspirin [Aspirin, Baby] 81 mg PO DAILY@0800 01/07/18 Dicyclomine HCl [Bentyl] 10 mg PO ACHS 01/07/18 Epi Pen (for allergic rxn) 0.3 mg IM X1 01/07/18 Fluticasone 110 Mcg [Flovent 110 Mcg] 1 puff INHALATION DAILY 01/07/18 Ibuprofen [Motrin] 600 mg PO Q8H PRN PRN 01/07/18 Levothyroxine [Synthroid] 100 mg PO DAILY 01/07/18 Loratadine 10 mg PO QHS MDD allergy 01/07/18 Lorazepam [Ativan] 0.5 mg PO PRN PRN 01/07/18 Ranitidine [Zantac] 150 mg PO BID 01/07/18 Sennosides [Senna Laxative] 8.6 mg PO BID 01/07/18 busPIRone [Buspar] 15 mg PO 4X/DAY 01/07/18 Acetaminophen [Tylenol] 1,000 mg PO Q8H PRN PRN tablet 07/05/18 Amitriptyline HCl [Elavil] 50 mg PO QHS 07/05/18 DiphenhydrAMINE [Benadryl] 25 mg PO Q6H PRN #1 capsule 07/05/18 Esomeprazole Magnesium [Nexium 24Hr] 20 mg PO BID 07/05/18 Gabapentin [Neurontin] 200 mg PO DAILY 07/05/18 Hyoscyamine Sulfate 1 tab SUBLINGUAL Q4H PRN PRN 07/05/18 Lubiprostone [Amitiza] 8 mcg PO BID 07/05/18 Ondansetron [Zofran Odt] 4 - 8 mg PO Q8H PRN PRN 07/05/18 Oxycodone HCl/Acetaminophen [Percocet 5-325] 1 tablet PO Q6H PRN PRN 1 Days #0 07/05/18 Sodium Chloride 0.65% [[place] Nasal [place]] 1 spray NASAL PRN PRN 07/05/18 Sumatriptan Succinate [Imitrex] 4 mg SQ .X1 PRN PRN #2 ml 07/05/18 proMETHazine tablet [Phenergan tablet] 25 mg PO Q6H PRN PRN #20 tablet 07/05/18 Following Prescrptions Were Given to Patient: proMETHazine tablet [Phenergan tablet] 25 mg PO Q6H PRN PRN #20 tablet PRN Reason: Migraine Symptoms Sumatriptan Succinate [Imitrex] 4 mg SQ .X1 PRN PRN #2 ml PRN Reason: Migraine Symptoms DiphenhydrAMINE [Benadryl] 25 mg PO Q6H PRN #1 capsule PRN Reason: Migraine Symptoms Primary Care Physician: Aftab Doctor,Out of [Primary Care Provider] - 1-2 Days if not improving Please Follow Up With: Babak Erwin - your neurologist When: 1-2 weeks Patient Instructions: ED Headache Migraine Disposition: Home Minutes spent on discharge:: 45 Patient Condition:: Good Medical Necessity - Tobacco Use Smoking Status: Never smoker Meaningful Use Info Meaningful Use Diagnoses (Choose all that apply): None applicable Code Visit OBSV E&M: 40694 Observation care discharge
== END 2018-07-05 15:00 | disposition home or self-care (01) ==
LOC: ED 23:57 → PCU 07-05 04:06
PROVIDERS: Admitting Provider Hospitalist; Emergency Provider Emergency Medicine; Referring Provider Hospitalist
DX: G43.011 Migraine without aura, intractable, with status migrainosus (principal); F31.9 Bipolar disorder, unspecified; G89.29 Other chronic pain; D50.9 Iron deficiency anemia, unspecified; G25.81 Restless legs syndrome; E66.9 Obesity, unspecified; Z68.38 Body mass index [BMI] 38.0-38.9, adult; Z71.3 Dietary counseling and surveillance; Z79.899 Other long term (current) drug therapy; Z79.82 Long term (current) use of aspirin; F41.9 Anxiety disorder, unspecified; E03.9 Hypothyroidism, unspecified; K21.9 Gastro-esophageal reflux disease without esophagitis; K58.1 Irritable bowel syndrome with constipation
CPT/HCPCS: 36415; 80048; 85025; 94640; 96365; 96372; 96375; 96376; 99218; 99284; J7030; J7040; A4216; G0378; J1110; J2405; J2930; J3030

== ENCOUNTER → 2018-12-12 | Outpatient (CLI) | payer MEDICAID, SELFPAY ==
[2018-07-05 04:48] VITALS: BMI 38.1
[2018-12-12 10:28] LABS: Anion Gap 7 (5-15); BUN 14 mg/dL (7-18); BUN/Creat Ratio 15.2 RATIO (10-20); Calcium,Total 8.7 mg/dL (8.5-10.1); Chloride 110 mmol/L (98-107); Creatinine, Serum 0.92 mg/dL (0.55-1.02); EST Glomerular Filtration Rate 68 mL/min (>60); Est Glom Filt Rate - Afr Amer 83 mL/min (>60); Glucose 98 mg/dL (74-106); Iron 39 ug/dL (50-170); Potassium 3.3 mmol/L (3.5-5.1); Sodium Level 145 mmol/L (136-145)
[2018-12-15 10:23] LABS: Vitamin B12 395 pg/mL (211-911)
== END | disposition home or self-care (01) ==
LOC: LAB 09:08
DX: R42 Dizziness and giddiness (principal); R60.9 Edema, unspecified; E87.6 Hypokalemia
CPT/HCPCS: 36415; 80048; 82607; 83540

== ENCOUNTER 2019-08-01 05:56 | Emergency (ER) | payer OTHER, MEDICAID, SELFPAY ==
[2018-07-05 04:48] VITALS: BMI 38.1
[2019-08-01 05:56] VITALS: BP 142/73; PULSE 95; RESP 18; TEMP 36.7; O2SAT 97; BMI 39.4
--- NOTE | 2019-08-01 06:09 | ED.VISSUMM ---
- ER Visit Summary Date of Service: 08/01/19 Chief Complaint: Recurrent migraine headache History of Present Illness: The patient is a 53 F history of migraines along with irritable bowel, restless leg, seizures, anemia and hypothyroidism and bipolar disorder. Patient states she gets frequent migraines. She denies any head trauma or fever. She is on no blood thinners. Said she had gradual onset of a headache similar to her migraines yesterday morning. Behind her right eye. Associated nausea and vomiting. No fever. She did have a negative CAT scan and a negative MRI in December 2017. Physical Examination: Middle-aged female with a towel over her eyes. Plan headache. Vital signs are stable afebrile. She does not look septic or toxic. H EENT exam unremarkable. She does have photophobia. Pupils round reactive light. Normal speech. No facial droop. No trauma. Neck nontender. No lymphadenopathy. No meningismus. Lungs clear to auscultation bilaterally. Heart regular rhythm no murmur. Abdomen is soft and nontender normal bowel sounds no peritoneal signs. Patient is moving all 4 extremities. Neurovascular intact. Equal symmetrical 5-5 skin specialist strength. Dorsi plantarflexion intact. Fingertip to nose within normal limits bilaterally. Neurologically she is awake alert with no focal motor deficit. NIH score is 0. Test Results: None Emergency Department Course and Treatment: Patient has a history of migraines. She has a normal neurologic exam. This sounds like 1 of her recurrent migraines. She will be treated with IV fluids, Toradol, Benadryl and Phenergan. Treatment Plan: Fluids and rest. Continue your home medications. Follow-up if not improving. Disposition: Discharge Impression: Acute cephalgia with a history of migraines This note was generated with [employer] dictation software. It may contain incorrect words, spelling, and punctuation that were not noted in review of the chart prior to signing ED Disposition - Plan for ED Patient: Referrals: NOT,DEFINED [Primary Care Provider] -
--- NOTE | 2019-08-01 06:12 | ED.DEP ---
ED Disposition - Plan for ED Patient: Disposition: Home or Assisted Living Instructions: ED, Migraine (Classical) Referrals: NOT,DEFINED [Primary Care Provider] - 1-2 Days if not improving Additional Instructions: Fluids and rest. Go home and sleep. Return if feeling worse or follow-up with your doctor if not improving.
[2019-08-01] MEDS: DiphenhydrAMINE 50 MG/ML Syringe IV (06:13)
[2019-08-01] MEDS: proMETHazine 25 MG/ML Syringe 12.5 MG IV (06:14)
[2019-08-01] MEDS: Ketorolac 30 MG/ML Syringe IV (06:15)
[2019-08-01] MEDS: 0.9% Normal Saline 1,000 ML 1000 ML IV (06:20)
[2019-08-01] MEDS: DiphenhydrAMINE 50 MG/ML Syringe 25 MG IV (07:09)
[2019-08-01 07:29] VITALS: BP 122/77; PULSE 83; RESP 18; O2SAT 100
== END 2019-08-01 07:33 | disposition home or self-care (01) ==
PROVIDERS: Emergency Provider Emergency Medicine
DX: G43.909 Migraine, unspecified, not intractable, without status migrainosus (principal); Z79.82 Long term (current) use of aspirin; E03.9 Hypothyroidism, unspecified; K58.9 Irritable bowel syndrome, unspecified
CPT/HCPCS: 96361; 96365; 96375; 96376; 99283; J7030; A4216